=== PATIENT | female | born 1960 | race Caucasian/White ===

== ENCOUNTER 2018-04-13 06:47 | Day surgery (SDC) | payer BC ==
[2018-04-13 07:45] VITALS: TEMP 98.4
[2018-04-13] MEDS ORDERED: Propofol 10 mg/ml Inj (20 ML) ONE (09:13)
--- NOTE | 2018-04-13 09:13 | CP.SDSHP ---
Same Day Surgery H & P - History Proposed Procedure: colonoscopy Pre-Op Diagnosis: screening - Allergies Allergies: Allergies No Known Allergies Allergy (Verified 04/13/18 07:23) - Physical Exam General Appearance: NAD Vital Signs: Vital Signs 04/13/18 07:30 Temperature 98.4 F Pulse Rate 60 Respiratory 19 Rate Blood Pressure 105/69 O2 Sat by Pulse 97 Oximetry Mental Status: Alert & Oriented x3 Neuro: WNL Heart: WNL Lungs: WNL GI: WNL - {Optional Preform as Required} Abdomen: WNL - Impression Pt. Evaluated Today:Candidate for Anesthesia & Procedure: Yes - Date & Time Date: 04/13/18 Time: 09:13 Short Stay Discharge - Short Stay Discharge Admitting Diagnosis/Reason for Visit: SCREENING Disposition: HOME/ ROUTINE
[2018-04-13 09:45] VITALS: O2SAT 100
[2018-04-13 10:24] VITALS: BP 97/64; PULSE 52; RESP 14
== END 2018-04-13 10:48 | disposition home or self-care (01) ==
LOC: C.ENDO 06:47
PROVIDERS: ATTEND Internal Medicine Gastroenterology
DX: K64.8 Other hemorrhoids (principal)
CPT/HCPCS: 45378; J2001; J2704

== ENCOUNTER 2019-01-04 06:49 | Day surgery (SDC) | payer BC ==
[2019-01-03 13:31] VITALS: BMI 21.9
[2019-01-04 07:15] VITALS: TEMP 97
--- NOTE | 2019-01-04 08:00 | CP.SDSHP ---
Same Day Surgery H & P - History Proposed Procedure: colonoscopy Pre-Op Diagnosis: screening - Allergies Allergies: Allergies No Known Allergies Allergy (Verified 01/04/19 07:01) - Physical Exam General Appearance: NAD Vital Signs: Vital Signs 01/04/19 01/04/19 07:01 07:09 Temperature 97 F L Pulse Rate 65 65 Respiratory 19 Rate Blood Pressure 106/65 O2 Sat by Pulse 98 Oximetry Mental Status: Alert & Oriented x3 Neuro: WNL Heart: WNL Lungs: WNL GI: WNL - {Optional Preform as Required} Abdomen: WNL - Impression Pt. Evaluated Today:Candidate for Anesthesia & Procedure: Yes - Date & Time Date: 01/04/19 Time: 08:00 Short Stay Discharge - Short Stay Discharge Admitting Diagnosis/Reason for Visit: SCREENING Disposition: HOME/ ROUTINE
[2019-01-04] MEDS ORDERED: Propofol 10 mg/ml Inj (20 ML) ONE (08:02)
[2019-01-04] MEDS ORDERED: Midazolam 2 MG/2 ML VIAL ONE (08:02)
[2019-01-04 09:06] VITALS: O2SAT 100
[2019-01-04 09:14] VITALS: BP 110/70; PULSE 62; RESP 20
== END 2019-01-04 09:30 | disposition home or self-care (01) ==
LOC: C.ENDO 06:49
PROVIDERS: ATTEND Internal Medicine Gastroenterology
DX: Z12.11 Encounter for screening for malignant neoplasm of colon (principal); K64.8 Other hemorrhoids
CPT/HCPCS: 45378; J2250; J2704